=== PATIENT | female | born 1990 | race Caucasian/White ===

== ENCOUNTER 2025-11-12 15:18 | Outpatient (AMB) | payer OTHER, MEDICAID, SELFPAY ==
--- NOTE | 2025-11-12 15:26 | A.OFFVIS_ITS ---
Vital Signs 11/12/25 15:44 Height 5 ft 4 in Weight 249 lb 1.957 oz BMI 42.8 BP 122/80 Blood Pressure Location Rt brachial Position Sitting Pulse 87 Pulse Source Pulse Oximeter Pulse Oximetry (%) 99 Oxygen Delivery Method Room Air Intake Visit Reasons: Obesity Intake Note: NEW Patient presents today to establish care for Weight Management : No acute complaints reported at this time. 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 Was previously on Wegovy, which was discontinued by insurance in August 2025. The primary care provider referred for specialist management to potentially obtain approval for [employer]. - Reports a history of obesity, which has been a lifelong issue. Was started on Wegovy approximately one year ago (around June 2024) by the primary care provider due to prediabetes and a strong family history of type 2 diabetes. Initial weight loss was approximately 30 pounds in the first month on Wegovy. The dose was then increased, which led to severe vomiting, prompting a reduction back to 0.5 mg. At this lower dose, there was no further weight loss. Insurance denied further coverage for Wegovy, and the medication was stopped in August 2025. Since discontinuing Wegovy, has regained approximately 18 pounds. Reports that the weight loss plateaued despite the dose increase, and the primary care provider had considered that initiating weight training may have contributed to building muscle mass. - Past medical history is significant for prediabetes, obesity, hypertension, and hyperlipidemia. Denies any history of thyroid issues; thyroid function tests were reportedly normal. Denies any history of medullary thyroid cancer in the family. - Current medications: None for weight management since August 2025. Previously on Wegovy, which was stopped. - Social history: Reports being very active with walking, aiming for at least 10,000 steps per day. Works as an network operations specialist, which involves significant walking. Has two young children, ages four and six. Denies smoking, alcohol use, or use of other drugs. Denies snoring or any symptoms of sleep apnea such as shortness of breath at night. - Allergies: No known drug allergies. Physical exam: General: Well appearing. NAD. Neck/Thyroid: Thyroid not palpable, no nodules. CV: RRR, no murmur. No edema. Resp:Lungs clear to auscultation bilaterally Abdomen: Soft, nontender. nondistended Extremities/Neuro: No weakness or tremor of outstretched hands Labs Labs from referral not legible, we will request labs again. [facility] Medical History (Updated 11/12/25 @ 16:31 by Francis Carballo MD) Hyperlipidemia High blood pressure Chronic GERD Acne Surgical History (Updated 11/12/25 @ 15:46 by SAMIRA Julien) Hx of section Family History (Updated 11/12/25 @ 15:34 by SAMIRA Julien) Mother Family history of coronary artery disease Myocardial infarction Hypertension Diabetes type 2 Hx of gastric bypass Social History (Updated 11/12/25 @ 15:35 by SAMIRA Julien) Alcohol intake: current Alcohol intake frequency: holidays/special occasions only Patient Tobacco Use Status: Never used Tobacco Physical Exam Vital Signs: Last Vital Signs Pulse 87 11/12/25 15:44 BP 122/80 11/12/25 15:44 Pulse Ox 99 11/12/25 15:44 Oxygen Delivery Method Room Air 11/12/25 15:44 BMI result Body Mass Index 42.8 Assessment & Plan Assessment & Plan (1) Obesity: Code(s): E66.9 - Obesity, unspecified Category: Medical Qualifiers: Obesity type: unspecified obesity type Obesity classification: adult class 3 (BMI >= 40) Serious obesity comorbidity presence: without serious comorbidity Body mass index: BMI 40.0-44.9 Qualified Code(s): E66.813 - Obesity, class 3; Z68.41 - Body mass index [BMI] 40.0-44.9, adult Plan: Obesity - Assessment: Presents with a history of obesity and prediabetes, with a significant family history of type 2 diabetes. Initial success with Wegovy was limited by side effects (vomiting) and subsequent insurance denial leading to medication cessation and weight regain. The current plan is to initiate Zepbound, which has shown superior efficacy and potentially fewer side effects compared to Wegovy. - Medical treatment planned: A prescription for Zepbound 2.5 mg was placed If insurance denies Zepbound, we will discuss re-initiating Wegovy as an alternative. - Lifestyle modifications: Continues to follow a low-carbohydrate, high-protein diet and remains physically active with walking and weight training. - Follow-up appointments: Will follow up in approximately four months to assess tolerance and efficacy of Zepbound. Was advised that a minimum of four weeks on a stable dose is required before considering an increase. Can request an earlier appointment if needed for any reason. Additional Notes: - Patient education on the diagnosed condition: Counseled on the potential side effects of Zepbound, including nausea, vomiting, bloating, constipation, and diarrhea. The most serious potential side effect discussed was pancreatitis. Was instructed to seek immediate medical attention at a hospital if experiencing severe upper abdominal pain radiating to the back, associated with severe nausea, vomiting, or fever. - Instructions for monitoring and managing symptoms: Advised that consuming fatty or high-carbohydrate foods can exacerbate nausea and vomiting associated with GLP-1 agonists. - Any specific patient or family concerns addressed during the consultation: Addressed concerns regarding insurance approval for Zepbound. Explained that wh ile some insurances may be removing it from their formulary in October 2026, this is not universal and we will proceed with the prescription request. Also explained that follow-up will be managed by this office rather than the primary care provider while on this medication. Plan 45 minutes spent reviewing previous records, labs, imaging, education and documenting in the chart Medications: New tirzepatide (weight loss) (Zepbound) for 4 weeks 2.5 mg (0.5 mL) subcut QWEEK 2 mL 2RF Coding Level of Care Code New Pt Level 4 (81748) Add On Problem Visit Only Diagnoses Class 3 severe obesity without serious comorbidity with body mass index (BMI) of 40.0 to 44.9 in adult, unspecified obesity type E66.813; Z68.41 Obesity type: unspecified obesity type Obesity classification: adult class 3 (BMI >= 40) Serious obesity comorbidity presence: without serious comorbidity Body mass index: BMI 40.0-44.9
[2025-11-12 15:44] VITALS: BP 122/80; PULSE 87; O2SAT 99; BMI 42.8
== END 2025-11-12 16:12 | disposition home or self-care (01) ==
PROVIDERS: Visit Provider Student in an Organized Health Care Education/Training Program
DX: E66.813 Obesity, class 3 (principal); Z68.41 Body mass index [BMI] 40.0-44.9, adult
CPT/HCPCS: 99204; G2211